=== PATIENT | female | born 1940 ===

== ENCOUNTER → 2017-01-22 | Outpatient (CLI) | payer MEDICARE, MEDICAID, OTHER | END | disposition home or self-care (01) | LOC: RAD.S 14:18 | DX: M54.2 Cervicalgia (principal); M47.892 Other spondylosis, cervical region; M47.896 Other spondylosis, lumbar region; M48.54XA Collapsed vertebra, not elsewhere classified, thoracic region, initial encounter for fracture; M81.0 Age-related osteoporosis without current pathological fracture; R55 Syncope and collapse; R51 Headache; X58.XXXA Exposure to other specified factors, initial encounter; Z98.890 Other specified postprocedural states ==

== ENCOUNTER → 2017-01-27 | Outpatient (CLI) | payer MEDICARE, MEDICAID | END | disposition home or self-care (01) | LOC: RAD.S 01-24 09:24 | DX: M48.54XA Collapsed vertebra, not elsewhere classified, thoracic region, initial encounter for fracture (principal); M54.5 Low back pain; D18.09 Hemangioma of other sites; M48.06 Spinal stenosis, lumbar region; M43.16 Spondylolisthesis, lumbar region ==

== ENCOUNTER 2017-02-03 06:17 | Day surgery (SDC) | payer MEDICARE, MEDICAID ==
[~2017-02-03] VITALS: Ht 162.6 cm; Wt 71.8 kg
== END 2017-02-03 11:05 | disposition home or self-care (01) ==
LOC: RAD.S 06:17 → EDSTATUS 08:00 → RAD.S 08:00
PROC: 0PU43JZ Supplement Thoracic Vertebra with Synthetic Substitute, Percutaneous Approach (ICD-10-PCS; principal; 2017-02-03)
PROC: 0PS43ZZ Reposition Thoracic Vertebra, Percutaneous Approach (ICD-10-PCS; principal; 2017-02-03)
DX: S22.040A Wedge compression fracture of fourth thoracic vertebra, initial encounter for closed fracture (principal); S22.080A Wedge compression fracture of T11-T12 vertebra, initial encounter for closed fracture; I10 Essential (primary) hypertension; E78.5 Hyperlipidemia, unspecified; K21.9 Gastro-esophageal reflux disease without esophagitis; Z79.899 Other long term (current) drug therapy; Z88.0 Allergy status to penicillin; Z88.1 Allergy status to other antibiotic agents; W10.9XXA Fall (on) (from) unspecified stairs and steps, initial encounter